=== PATIENT | male | born 1955 | race Caucasian/White ===

== ENCOUNTER 2021-11-18 12:27 | Emergency (ER) | payer MEDICAID ==
[~2021-11-18] VITALS: Ht 170.2 cm; Wt 80.0 kg
[~2021-11-18 12:27] MED LIST: ALBU17AE26; BENA40TA91; GLIP5TAB12; SIMV40TA2
[2021-11-18] MEDS ORDERED: IPRATROPIUM/ALBUTEROL 0.5-3(2.5)MG/3ML NEB HHN ONE (14:45)
[2021-11-18 15:39] VITALS: BP 148/82
== END 2021-11-18 17:00 | disposition home or self-care (01) ==
LOC: ER 12:27
DX: J45.901 Unspecified asthma with (acute) exacerbation (principal); I10 Essential (primary) hypertension; Z88.0 Allergy status to penicillin; Z20.822 Contact with and (suspected) exposure to COVID-19
CPT/HCPCS: 71045; 87426; 94640; 99284; C9803; Z7610

== ENCOUNTER 2024-06-09 00:49 | Inpatient (IN) | payer MEDICAID ==
[2024-06-09] VITALS (8 sets, daily range): BP systolic 119–131; BP diastolic 65–73; PULSE 82–121; RESP 18–20; TEMP 36.22512–36.61404; O2SAT 90–96
[~2024-06-09] VITALS: Ht 165.1 cm; Wt 70.8 kg
[~2024-06-09 00:49] MED LIST changes: -GLIP5TAB12; +GLIP5TAB22; +SIMV-345; -SIMV40TA2
[2024-06-09] MEDS: METHYLPREDNISOLONE SOD SUCC 125MG/2ML (ACT-O-VIAL) IV STA (02:05)
[2024-06-09 02:28] LABS: HEMATOCRIT. 38.9 % (42.0-52.0); HEMOGLOBIN. 13.1 g/dL (14.0-18.0); MEAN CORPUSCULAR HEMOGLOBIN 29.3 pg (28.0-32.0); MEAN CORPUSCULAR HGB CONC 33.5 g/dL (31.0-37.0); MEAN CORPUSCULAR VOLUME 87.5 fL (80.0-94.0); MEAN PLATELET VOLUME 7.9 fl (7.4-10.4); PLATELET 200 x1000/uL (130-400); RED BLOOD CELL COUNT 4.45 mill/uL (4.7-6.1); RED CELL DISTRIBUTION WIDTH 14.4 % (11.6-14.6); WHITE BLOOD COUNT 7.4 x1000/uL (4.5-11.0)
[2024-06-09 02:36] LABS: DIFFERENTIAL COMMENT 1
[2024-06-09 02:37] LABS: PROTHROMBIN TIME 10.8 sec (9.6-11.0)
[2024-06-09 02:41] LABS: CHLORIDE 108 mEq/L (98-107); POTASSIUM 4.5 mEq/L (3.5-5.1); SODIUM 141 mEq/L (136-145)
[2024-06-09 02:42] LABS: CALCIUM 9.3 mg/dL (8.7-10.4); CARBON DIOXIDE 24 mEq/L (21-32)
[2024-06-09 02:47] LABS: CREATININE 1.1 mg/dL (0.6-1.3); GLUCOSE 225 mg/dL (70-105); UREA NITROGEN BLOOD 14 mg/dL (9-23)
[2024-06-09 03:18] LABS: ETHANOL BLOOD < 10 mg/dL (<10); TROPONIN I HIGH SENSITIVITY 78 ng/L (3.0-53)
[2024-06-09 04:11] LABS: PLATELET ESTIMATE NORMAL
[2024-06-09] MEDS ORDERED: OSELTAMIVIR 75MG CAPSULE PO ONE (04:15)
[2024-06-09] MEDS: ASPIRIN 325MG EC TABLET PO NR (04:15)
[2024-06-09 04:52] LABS: CLARITY URINE CLEAR (CLEAR); COLOR URINE YELLOW (YELLOW); GLUCOSE URINE 2+ (NEGATIVE); KETONES URINE NEGATIVE (NEGATIVE); LEUKOCYTE ESTERASE URINE NEGATIVE (NEGATIVE); NITRITE URINE NEGATIVE (NEGATIVE); OCCULT BLOOD URINE NEGATIVE (NEGATIVE); PH URINE 5.5 (4.5-8.0); PROTEIN URINE NEGATIVE (NEGATIVE); SPECIFIC GRAVITY URINE 1.018 (1.005-1.030); UROBILINOGEN URINE 0.2 E.U./dL (0.2-1.0)
[2024-06-09 05:14] LABS: *AMPHETAMINES SCREEN URINE NEGATIVE (NEGATIVE); *BARBITURATES SCREEN URINE NEGATIVE (NEGATIVE); *BENZODIAZEPINES SCREEN URINE NEGATIVE (NEGATIVE); *COCAINE SCREEN URINE NEGATIVE (NEGATIVE)
[2024-06-09 05:15] LABS: CANNABINOID URINE SCREEN NEGATIVE (NEGATIVE); ECSTASY MDMA SCREEN URINE NEGATIVE (NEGATIVE); METHADONE URINE SCREEN NEGATIVE (NEGATIVE); OPIATES URINE SCREEN NEGATIVE (NEGATIVE); PHENCYCLIDINE URINE SCREEN NEGATIVE (NEGATIVE)
[2024-06-09] MEDS: ALBUTEROL (0.083%) 2.5MG/3ML NEB HHN STA (06:00)
[2024-06-09] MEDS: IPRATROPIUM BROMIDE (0.02%) 0.5MG/2.5ML NEB HHN STA (06:00)
[2024-06-09] MEDS: IPRATROPIUM BROMIDE (0.02%) 0.5MG/2.5ML NEB HHN NR (06:09)
[2024-06-09] MEDS: ALBUTEROL (0.083%) 2.5MG/3ML NEB HHN NR (06:23)
[2024-06-09 07:22] LABS: SQUAMOUS EPITHELIAL CELL URINE FEW /lpf (RARE/1+)
[2024-06-09 07:23] LABS: BACTERIA URINE NONE SEEN; RBC URINE 0-2 /hpf (0-2); WBC URINE 0-2 /hpf (0-2)
[2024-06-09] MEDS: OSELTAMIVIR 75MG CAPSULE PO NR (09:09)
[2024-06-09] MEDS: PREDNISONE 10MG TABLET PO SCH (10:59)
[2024-06-09] MEDS ORDERED: CLONIDINE 0.1MG TABLET PO PRN (11:15)
[2024-06-09] MEDS ORDERED: DEXTROSE 50% WATER 50ML SYRINGE IV PRN (11:15)
[2024-06-09] MEDS ORDERED: ONDANSETRON HCL 4MG/2ML INJ IV PRN (11:15)
[2024-06-09] MEDS ORDERED: DOCUSATE SODIUM 100MG CAPSULE PO PRN (11:15)
[2024-06-09] MEDS ORDERED: ACETAMINOPHEN 325MG TABLET PO PRN (11:15)
[2024-06-09] MEDS: INSULIN LISPRO 100 UNITS/ML SUBCUT SCH (12:10)
[2024-06-09] MEDS: BLOOD SUGAR DIAGNOSTIC STRIP TEST SCH (12:19)
[2024-06-09] MEDS: IPRATROPIUM/ALBUTEROL 0.5-3(2.5)MG/3ML NEB HHN SCH (12:38)
[2024-06-09] MEDS ORDERED: BENAZEPRIL 10MG TABLET PO SCH (13:00)
[2024-06-09] MEDS: LISINOPRIL 40MG TABLET PO SCH (15:32)
[2024-06-09] MEDS: BENZONATATE 100MG CAPSULE PO PRN (15:32)
[2024-06-09 17:31] LABS: TROPONIN I HIGH SENSITIVITY 65 ng/L (3.0-53)
[2024-06-09] MEDS: ATORVASTATIN CALCIUM 40MG TABLET PO SCH (21:26)
[2024-06-10] VITALS (10 sets, daily range): BP systolic 97–129; BP diastolic 49–85; PULSE 72–107; RESP 18–20; TEMP 36.3918–36.6696; O2SAT 89–100
[2024-06-10 07:11] LABS: CARBON DIOXIDE 23 mEq/L (21-32); CHLORIDE 107 mEq/L (98-107); POTASSIUM 4.1 mEq/L (3.5-5.1); SODIUM 140 mEq/L (136-145)
[2024-06-10 07:12] LABS: CALCIUM 9.1 mg/dL (8.7-10.4)
[2024-06-10 07:17] LABS: CREATININE 1.2 mg/dL (0.6-1.3); GLUCOSE 244 mg/dL (70-105); UREA NITROGEN BLOOD 25 mg/dL (9-23)
[2024-06-10 07:18] LABS: ALANINE AMINOTRANSFERASE 9 IU/L (10-49)
[2024-06-10 07:19] LABS: ALBUMIN 3.8 g/dL (3.2-4.8); ASPARTATE AMINOTRANSFERASE 10 IU/L (<34); BILIRUBIN TOTAL 0.4 mg/dL (0.1-1.0)
[2024-06-10 08:03] LABS: TROPONIN I HIGH SENSITIVITY 65 ng/L (3.0-53)
[2024-06-10] MEDS: GUAIFENESIN-DM 200MG-20MG/10ML UDC PO PRN (08:17)
[2024-06-10 09:38] LABS: BASOPHILS % 0.4 % (0.0-2.0); EOSINOPHILS % 0.4 % (0.0-5.0); HEMATOCRIT. 35.6 % (42.0-52.0); HEMOGLOBIN. 12.1 g/dL (14.0-18.0); LYMPHOCYTES % 9.8 % (20.0-50.0); MEAN PLATELET VOLUME 8.3 fl (7.4-10.4); MONOCYTES % 9.3 % (2.0-8.0); NEUTROPHILS % 80.1 % (40.0-76.0); PLATELET 221 x1000/uL (130-400); RED BLOOD CELL COUNT 4.05 mill/uL (4.7-6.1); RED CELL DISTRIBUTION WIDTH 14.6 % (11.6-14.6)
[2024-06-10] MEDS: IPRATROPIUM BROMIDE (0.02%) 0.5MG/2.5ML NEB HHN SCH (13:58)
[2024-06-10] MEDS: SIMETHICONE 80MG TABLET CHEW PO PRN (16:12)
[2024-06-11] VITALS (11 sets, daily range): BP systolic 106–130; BP diastolic 62–75; PULSE 81–102; RESP 16–20; TEMP 36.50292–37.05852; O2SAT 93–99
[2024-06-11] MEDS ORDERED: ALBUTEROL (0.083%) 2.5MG/3ML NEB ONE (06:17)
[2024-06-11] MEDS: IPRATROPIUM/ALBUTEROL 0.5-3(2.5)MG/3ML NEB HHN PRN (10:03)
[2024-06-11] MEDS ORDERED: TIOT18CA3 INH (11:38)
[2024-06-12] VITALS (10 sets, daily range): BP systolic 105–139; BP diastolic 65–85; PULSE 89–130; RESP 16–25; TEMP 34.66944–36.6696; O2SAT 92–99
[2024-06-12] MEDS: ACETYLCYSTEINE 200MG/ML 20% VIAL 4ML INH SCH (00:12)
[2024-06-12] MEDS: ACETAMINOPHEN 325MG TABLET PO PRN (02:27)
[2024-06-13 02:50] VITALS: PULSE 83; RESP 14; O2SAT 98
[2024-06-13 07:45] LABS: CALCIUM 9.7 mg/dL (8.7-10.4); CARBON DIOXIDE 22 mEq/L (21-32); CHLORIDE 108 mEq/L (98-107); POTASSIUM 4.5 mEq/L (3.5-5.1); SODIUM 139 mEq/L (136-145)
[2024-06-13 07:50] LABS: CREATININE 1.2 mg/dL (0.6-1.3); THYROID STIMULATING HORMONE 1.33 uIU/mL (0.55-4.78)
[2024-06-13 07:51] LABS: GLUCOSE 192 mg/dL (70-105); UREA NITROGEN BLOOD 21 mg/dL (9-23)
[2024-06-13 08:00] VITALS: BP 135/78; PULSE 96; RESP 18; TEMP 36.50292; O2SAT 98
[2024-06-13 08:26] LABS: BASOPHILS % 0.5 % (0.0-2.0); EOSINOPHILS % 2.3 % (0.0-5.0); HEMATOCRIT. 41.7 % (42.0-52.0); HEMOGLOBIN. 14.2 g/dL (14.0-18.0); LYMPHOCYTES % 28.6 % (20.0-50.0); MEAN CORPUSCULAR HGB CONC 34.2 g/dL (31.0-37.0); MEAN CORPUSCULAR VOLUME 87.7 fL (80.0-94.0); MONOCYTES % 9.1 % (2.0-8.0); NEUTROPHILS % 59.5 % (40.0-76.0); PLATELET 278 x1000/uL (130-400); RED BLOOD CELL COUNT 4.75 mill/uL (4.7-6.1); WHITE BLOOD COUNT 8.1 x1000/uL (4.5-11.0)
[2024-06-13 12:00] VITALS: BP 106/60; RESP 18; TEMP 36.55848; O2SAT 97
[2024-06-13 13:00] VITALS: PULSE 116; RESP 20
[2024-06-13 16:00] VITALS: BP 115/59; PULSE 81; RESP 18; TEMP 36.50292; O2SAT 97
[2024-06-13 20:00] VITALS: BP 106/60; PULSE 76; RESP 18; TEMP 36.55848; O2SAT 96
[2024-06-14] VITALS: BP 122/67; PULSE 80; RESP 19; TEMP 36.6696; O2SAT 99
[2024-06-14 04:00] VITALS: BP 138/75; PULSE 92; RESP 19; TEMP 36.3918; O2SAT 96
[2024-06-14 08:00] VITALS: BP 132/69; PULSE 91; RESP 18; TEMP 36.28068; O2SAT 96
[2024-06-14 10:24] VITALS: BP 132/69; PULSE 81; TEMP 97.3; O2SAT 96
== END 2024-06-14 12:00 | disposition home or self-care (01) | DRG 139 ==
LOC: ER 00:49 → 7EST 02:53
PROVIDERS: ADMIT Internal Medicine; ATTEND Internal Medicine
DX: J12.9 Viral pneumonia, unspecified (principal); J96.21 Acute and chronic respiratory failure with hypoxia; R65.10 Systemic inflammatory response syndrome (SIRS) of non-infectious origin without acute organ dysfunction; J44.0 Chronic obstructive pulmonary disease with (acute) lower respiratory infection; E11.9 Type 2 diabetes mellitus without complications; D64.9 Anemia, unspecified; J44.1 Chronic obstructive pulmonary disease with (acute) exacerbation; J10.01 Influenza due to other identified influenza virus with the same other identified influenza virus pneumonia; Z20.822 Contact with and (suspected) exposure to COVID-19; I10 Essential (primary) hypertension; B97.89 Other viral agents as the cause of diseases classified elsewhere; E78.5 Hyperlipidemia, unspecified; R81 Glycosuria; Z79.84 Long term (current) use of oral hypoglycemic drugs; Z79.899 Other long term (current) drug therapy; Z87.891 Personal history of nicotine dependence; Z88.0 Allergy status to penicillin; Z93.0 Tracheostomy status
CPT/HCPCS: 31720; 36415; 71045; 80048; 80053; 80305; 80320; 81003; 82962; 83036; 83735; 83880; 84443; 84484; 85025; 87426; 87804; 93005; 93306; 94070; 94640; 94664; 94760; 99285; A4606; J1815; J2919; J7512; J7608; G0480